=== PATIENT | female | born 2000 | race Caucasian/White ===

== ENCOUNTER → 2019-04-02 13:40 | Emergency (ER) | payer BC ==
[~2019-04-02 13:40] MED LIST: Metoclopramide IV* 5 MG/ML 2 ML VIAL IV ONE; NS 0.9% 1000 ML** 1,000 ML IV ONE
[2019-04-02 14:49] LABS: ABS Eosinophils 0.1 10^3/ul (0-0.6); ABS Lymphocytes 2.5 10^3/ul (1.0-4.8); ABS Monocytes 0.6 10^3/ul (0-0.8); ABS Neutrophils 8.4 10^3/ul (1.5-7.7); Eosinophil % 0.5 %; Hematocrit 30 % (35-47); Hemoglobin 10.4 g/dL (12.0-16.0); Lymphocyte % 21.3 %; Mean Corpuscular HGB Conc 34 g/dL (31-36); Mean Corpuscular Hemoglobin 29 pg (27-31); Mean Corpuscular Volume 85 fL (80-97); Platelet Count 272 10^3/uL (150-450); Red Blood Count 3.59 10^6 /uL (3.70-4.87); Red Cell Distribution Width 13 % (10.5-15); White Blood Count 11.5 10^3/uL (3.5-10.8)
[2019-04-02 15:07] LABS: Albumin 4.1 g/dL (3.2-5.2); Albumin/Globulin Ratio 1.6 (1-3); BUN/Creatinine Ratio 9.1 (8-20); C Reactive Protein 1.28 mg/L (<8.01); Calcium 9.5 mg/dL (8.6-10.3); EGFR African American 170.5 (>60); EGFR Non-African American 140.9 (>60); Globulin 2.6 g/dL (2-4); Potassium 3.3 mmol/L (3.5-5.0); Total Bilirubin 0.4 mg/dL (0.2-1.0); Total Protein 6.7 g/dL (6.4-8.9)
[2019-04-02 15:35] LABS: Urine Appearance Cloudy; Urine Bacteria 1+ (Absent); Urine Bilirubin Negative (Negative); Urine Blood 3+ (Negative); Urine Color Yellow; Urine Glucose Negative (Negative); Urine Ketones Negative (Negative); Urine Nitrite Negative (Negative); Urine Protein Negative (Negative); Urine Red Blood Cell 3+(>10/hpf) (Absent); Urine Specific Gravity 1.011 (1.010-1.030); Urine Squamous Epithelial Cell Present (Absent); Urine Urobilinogen Negative (Negative); Urine White Blood Cell Trace(0-5/hpf) (Absent)
--- NOTE | 2019-04-02 17:25 | ED ---
Abdominal Pain/Female - HPI Summary HPI Summary: Patient is a 18yo F who is 14 weeks reporting R sided flank pain. She said this was acute in onset, lasted approximately one hour and dissipated prior to arrival. She denies any urinary symptoms including hematuria. No history of kidney stones. She states she has never had anything like this before. So far normal , with associated nausea and vomiting intermittently. She did have nausea and vomiting today with her right-sided flank pain. The right-sided flank pain did radiate around to the RLQ briefly. She denies any fevers, sweats, chills. She denies any other symptoms at this time. She is otherwise healthy, takes no medications. - History of Current Complaint Chief Complaint: EDFlankIndrain Stated Complaint: FLANK PAIN, 14 WKS PER PT Time Seen by Provider: 04/02/19 14:40 Hx Obtained From: Patient ?: No Onset/Duration: Sudden Onset Severity Initially: Moderate Severity Currently: Moderate Pain Intensity: 5 Pain Scale Used: 0-10 Numeric Location: Flank Radiates: No Radiates to: RLQ Character: Sharp Aggravating Factor(s): Nothing Alleviating Factor(s): Nothing Associated Signs and Symptoms: Positive: Negative - Risk Factors Ectopic Risk Factor: Negative Ovarian Torsion Risk Factor: Reproductive Age Allergies/Adverse Reactions: Allergies Allergy/AdvReac Type Severity Reaction Status Date / Time No Known Allergies Allergy Verified 04/02/19 13:51 Home Medications: Home Medications Albuterol HFA INHALER* [Ventolin HFA Inhaler*] 1 puff INH Q6H PRN 04/02/19 [ History Confirmed 04/02/19] Citalopram Hydrobromide [Citalopram HBr] 20 mg PO DAILY 04/02/19 [History Confirmed 04/02/19] Doxylamine Succinate/Vit B6 [Bonjesta ER 20-20 mg Tablet] 20 mg PO BID PRN 04/02 [History Confirmed 04/02/19] Vitamin TAB* 1 tab PO DAILY 04/02/19 [History Confirmed 04/02/19] PMH/Surg Hx/FS Hx/Imm Hx Previously Healthy: Yes Infectious Disease History: No Infectious Disease History: Denies: Traveled Outside the [place] in Last 30 Days - Social History Occupation: Unemployed Lives: With Family Alcohol Use: None Hx Substance Use: No Substance Use Type: Reports: None Smoking Status (MU): Former Smoker Review of Systems Negative: Fever, Chills, Fatigue, Skin Diaphoresis Negative: Palpitations, Chest Pain Negative: Shortness Of Breath, Cough Positive: Vomiting, Nausea. Negative: Diarrhea Positive: see HPI, flank pain Negative: Rash, Bruising Neurological: Negative All Other Systems Reviewed And Are Negative: Yes Physical Exam Triage Information Reviewed: Yes Vital Signs On Initial Exam: Initial Vitals Temp Pulse Resp BP Pulse Ox 99 F 83 16 104/68 98 04/02/19 13:49 04/02/19 13:49 04/02/19 13:49 04/02/19 13:49 04/02/19 13:49 Vital Signs Reviewed: Yes Appearance: Positive: Well-Appearing, Well-Nourished Skin: Positive: Warm, Skin Color Reflects Adequate Perfusion Head/Face: Positive: Normal Head/Face Inspection Eyes: Positive: EOMI, MARYCRUZ, Conjunctiva Clear Neck: Positive: Supple, No Lymphadenopathy Respiratory/Lung Sounds: Positive: Clear to Auscultation, Breath Sounds Present Cardiovascular: Positive: RRR, Pulses are Symmetrical in both Upper and Lower Extremities Abdomen Description: Positive: Soft. Negative: Nontender, No Organomegaly, CVA Tenderness (R), CVA Tenderness (L) Musculoskeletal: Positive: Normal, Strength/ROM Intact Neurological: Positive: Speech Normal Psychiatric: Positive: Normal, Affect/Mood Appropriate AVPU Assessment: Alert Diagnostics - Vital Signs Vital Signs Temp Pulse Resp BP Pulse Ox 04/02/19 16:00 74 100 04/02/19 15:22 75 100 04/02/19 14:41 77 112/64 100 04/02/19 13:49 99 F 83 16 104/68 98 - Laboratory Lab Results: Lab Results 04/02/19 04/02/19 04/02/19 Range/Units 13:53 14:40 14:40 WBC 11.5 H (3.5-10.8) 10^3/uL RBC 3.59 L (3.70-4.87) 10^6 /uL Hgb 10.4 L (12.0-16.0) g/dL Hct 30 L (35-47) % MCV 85 (80-97) fL MCH 29 (27-31) pg MCHC 34 (31-36) g/dL RDW 13 (10.5-15) % Plt Count 272 (150-450) 10^3/uL MPV 8.0 (7.4-10.4) fL Neut % (Auto) 72.7 % Lymph % (Auto) 21.3 % Pierce % (Auto) 5.3 % Eos % (Auto) 0.5 % Baso % (Auto) 0.2 % Absolute Neuts (auto) 8.4 H (1.5-7.7) 10^3/ul Absolute Lymphs (auto) 2.5 (1.0-4.8) 10^3/ul Absolute Monos (auto) 0.6 (0-0.8) 10^3/ul Absolute Eos (auto) 0.1 (0-0.6) 10^3/ul Absolute Basos (auto) 0.0 (0-0.2) 10^3/ul Absolute Nucleated RBC 0.0 10^3/ul Nucleated RBC % 0.0 Sodium 134 L (135-145) mmol/L Potassium 3.3 L (3.5-5.0) mmol/L Chloride 106 (101-111) mmol/L Carbon Dioxide 21 L (22-32) mmol/L Anion Gap 7 (2-11) mmol/L BUN 5 L (6-24) mg/dL Creatinine 0.55 (0.51-0.95) mg/dL Est GFR ( Amer) 170.5 (>60) Est GFR (Non-Af Amer) 140.9 (>60) BUN/Creatinine Ratio 9.1 (8-20) Glucose 98 (70-100) mg/dL Lactic Acid (0.5-2.0) mmol/L Calcium 9.5 (8.6-10.3) mg/dL Total Bilirubin 0.40 (0.2-1.0) mg/dL AST 13 (13-39) U/L ALT 8 (7-52) U/L Alkaline Phosphatase 35 (34-104) U/L C-Reactive Protein 1.28 (<8.01) mg/L Total Protein 6.7 (6.4-8.9) g/dL Albumin 4.1 (3.2-5.2) g/dL Globulin 2.6 (2-4) g/dL Albumin/Globulin Ratio 1.6 (1-3) Urine Color Yellow Urine Appearance Cloudy Urine pH 6.0 (5-9) Ur Specific [place] 1.011 (1.010-1.030) Urine Protein Negative (Negative) Urine Ketones Negative (Negative) Urine Blood 3+ A (Negative) Urine Nitrate Negative (Negative) Urine Bilirubin Negative (Negative) Urine Urobilinogen Negative (Negative) Ur Leukocyte Esterase Negative (Negative) Urine WBC (Auto) Trace(0-5/hpf) (Absent) Urine RBC (Auto) 3+(>10/hpf) A (Absent) Ur Squamous Epith Cells Present A (Absent) Urine Bacteria 1+ A (Absent) Urine Glucose Negative (Negative) 04/02/19 Range/Units 14:40 WBC (3.5-10.8) 10^3/uL RBC (3.70-4.87) 10^6 /uL Hgb (12.0-16.0) g/dL Hct (35-47) % MCV (80-97) fL MCH (27-31) pg MCHC (31-36) g/dL RDW (10.5-15) % Plt Count (150-450) 10^3/uL MPV (7.4-10.4) fL Neut % (Auto) % Lymph % (Auto) % Pierce % (Auto) % Eos % (Auto) % Baso % (Auto) % Absolute Neuts (auto) (1.5-7.7) 10^3/ul Absolute Lymphs (auto) (1.0-4.8) 10^3/ul Absolute Monos (auto) (0-0.8) 10^3/ul Absolute Eos (auto) (0-0.6) 10^3/ul Absolute Basos (auto) (0-0.2) 10^3/ul Absolute Nucleated RBC 10^3/ul Nucleated RBC % Sodium (135-145) mmol/L Potassium (3.5-5.0) mmol/L Chloride (101-111) mmol/L Carbon Dioxide (22-32) mmol/L Anion Gap (2-11) mmol/L BUN (6-24) mg/dL Creatinine (0.51-0.95) mg/dL Est GFR ( Amer) (>60) Est GFR (Non-Af Amer) (>60) BUN/Creatinine Ratio (8-20) Glucose (70-100) mg/dL Lactic Acid 1.2 (0.5-2.0) mmol/L Calcium (8.6-10.3) mg/dL Total Bilirubin (0.2-1.0) mg/dL AST (13-39) U/L ALT (7-52) U/L Alkaline Phosphatase (34-104) U/L C-Reactive Protein (<8.01) mg/L Total Protein (6.4-8.9) g/dL Albumin (3.2-5.2) g/dL Globulin (2-4) g/dL Albumin/Globulin Ratio (1-3) Urine Color Urine Appearance Urine pH (5-9) Ur Specific [place] (1.010-1.030) Urine Protein (Negative) Urine Ketones (Negative) Urine Blood (Negative) Urine Nitrate (Negative) Urine Bilirubin (Negative) Urine Urobilinogen (Negative) Ur Leukocyte Esterase (Negative) Urine WBC (Auto) (Absent) Urine RBC (Auto) (Absent) Ur Squamous Epith Cells (Absent) Urine Bacteria (Absent) Urine Glucose (Negative) Result Diagrams: 04/02/19 14:40 04/02/19 14:40 Lab Statement: Any lab studies that have been ordered have been reviewed, and results considered in the medical decision making process. Abdominal Pain Fem Course/Dx - Course Course Of Treatment: During the course of treatment, the patient is evaluated for right-sided flank pain. Labs obtained, UA obtained and an ultrasound of the kidney obtained. Labs are WNL, UA shows RBCs +3. Otherwise negative for infection. Ultrasound obtained which shows no acute findings. Discussed with the patient these results. This is likely a passed kidney stone. Patient remains asymptomatic and will be discharged home at this time. Discussed strict return precautions for the patient to return if she develops any worsening or changing symptoms. - Diagnoses Differential Diagnosis: Positive: Other - hematuria, kidney stone, muscle strain Provider Diagnoses: Right flank pain Discharge - Sign-Out/Discharge Documenting (check all that apply): Patient Departure Patient Received Moderate/Deep Sedation with Procedure: No - Discharge Plan Condition: Stable Disposition: HOME Patient Education Materials: Kidney Stones (ED) Referrals: Sussy Murphy MD [Primary Care Provider] - Additional Instructions: If you develop worsening symptoms - return to the ED - Billing Disposition and Condition Condition: STABLE Disposition: Home
[2019-04-02 17:53] VITALS: BP 110/53
== END | disposition home or self-care (01) ==
LOC: ED 13:40
DX: O26.891 Other specified pregnancy related conditions, first trimester (principal); Z3A.14 14 weeks gestation of pregnancy; R10.9 Unspecified abdominal pain; Z87.891 Personal history of nicotine dependence
CPT/HCPCS: 36415; 76775; 80053; 81003; 81015; 83605; 85025; 86140; 87086; 96361; 96374; 99282; J2765

== ENCOUNTER 2019-09-28 16:00 | Inpatient (IN) | payer BC ==
--- NOTE | 2019-09-28 17:51 | HP ---
General Information - Reason for Visit Seen in office. BPP6/8 for breathing. Baby growth <10th percentile. Suspect IUGR. - General Information Maternal Age: 18 Grav: 1 Para: 0 SAB: 0 IEA: 0 Estimated Due Date: 09/24/19 Determined By: Early Ultrasound Maternal Blood Type and Rh: O Positive - Results this Serology/RPR Result: Non-Reactive Rubella Result: Immune HBsAg Result: Negative HIV Result: Negative GBS Culture Result: Negative Past Medical History Delivery History: See Records Delivery History Comment: no past pregnancies Pertinent Past Medical History: See Records - Depression/anxiety, migraines Pertinent Past Surgical History: None Pertinent Family History: See Records - Paternal grandmother- in childbirth; Maternal grandfather-COPD - Antepartal Records Antepartal Records: Reviewed, Complicated by: - Anemia, suspected IUGR Review of Systems Constitutional: Comfortable CV Complaint: No Respiratory: Shortness of Breath: No Gastrointestinal: No Nausea/Vomiting, Diarrhea Genitourinary: No Dysuria, No Bleeding, No Leaking Fluid Musculoskeletal: No Complaint, No Epigastric Pain Neurological: No Visual Changes, Headache - WNL per her baseline, manages with Tylenol Movement: Normal Exam Allergies/Adverse Reactions: Allergies Latex, Natural Rubber Allergy (Verified 09/28/19 18:53) Itching BP 126/75 HRR 82 RR 16 Temp 98.4 O2 sat 96% on ra - Measurements Height: 1.57 m Weight: 63.503 kg Body Mass Index (BMI): 25.6 Pre- Weight: 55.792 kg - Exam Breast: Breast Exam Deferred CVA: CVA Tenderness - Left side, pt reports hx kidney stones Extremities: No Edema Heart: Normal Rhythm/Heart Sounds HEENT: No Significant Findings Lungs: Clear Bilaterally Rectal: Rectal Exam Deferred Reflexes: DTR 2+, - - No clonus Thyroid: - - assessed as enlarged at entry to care, TFTs WNL - Abdominal Exam Abdomen Exam: Non-Tender - Ultrasound/Biophysical Profile Ultrasound Status: Not Done Targeted Exam Findings See L&D Outpatient Visit Provider Note for Findings: N/A Estimated Weight: 6lb Cervical Exam: 2cm Effacement: 60% Station: -1 Presenting Part: Vertex Membrane Status: Intact Bleeding/Discharge: None EFM Findings - External Monitor Findings Baseline Heart Rate: 130 External Monitor Findings: Accelerations Present, No Pattern of Variable or Late Decelerations, Variability Moderate Contractions: Irregular, Mild, 45-90 Seconds Contraction Frequency: q3-5 Assessment/Plan - Assessment IUP at 40-4 per US@12-01/28 IOL for suspected IUGR Membranes intact No evidence of acidemia - Obstetrical Risk Factors Obstetrical Risk Factors: IUGR - Plan Plan: Induction, Cervical Ripening, Admit - Anticipate Vaginal Delivery Plan Comment: Discussion of cervical ripening, pt agreeable. Monitor per protocol. Discussed phenergan and nubain for therapeutic rest prn, order placed. - Date/Time of Admission Date of Admission: 09/28/19 Time of Admission: 17:42
[2019-09-28] MEDS ORDERED: Lactated Ringers 1000 ML Bag* 1,000 ML IV ONE (18:17)
[2019-09-28] MEDS ORDERED: Nalbuphine* 10 MG/ML 1 ML VIAL IM PRN (18:17)
[2019-09-28] MEDS ORDERED: Promethazine INJ(RESTRICTED)* 25 MG/ML 1 ML VIAL IM PRN (18:17)
[2019-09-28] MEDS ORDERED: Buffered Lidocaine 1% SYRIN* 1 ML/SYRINGE INTRADERM ONE (18:17)
[2019-09-28] MEDS ORDERED: Acetaminophen TAB* 325 MG PO PRN (18:23)
[2019-09-28] MEDS ORDERED: Dinoprostone* 10 MG VAG.SUPP VAGINAL ONE (18:26)
[2019-09-28] MEDS ORDERED: Lactated Ringers 1000 ML Bag* 1,000 ML IV SCH (19:00)
[2019-09-28 21:38] LABS: Urine Appearance Cloudy; Urine Bacteria 1+ (Absent); Urine Bilirubin Negative (Negative); Urine Blood Negative (Negative); Urine Color Yellow; Urine Glucose Negative (Negative); Urine Ketones Negative (Negative); Urine Nitrite Positive (Negative); Urine Protein 2+(100 mg/dL) (Negative); Urine Red Blood Cell Absent (Absent); Urine Urobilinogen Negative (Negative); Urine White Blood Cell 3+(>20/hpf) (Absent)
[2019-09-28 21:48] LABS: Urine Benzodiazepine Screen None Detected (None Detect); Urine Opiates Screen None Detected (None Detect)
[2019-09-29] MEDS: Promethazine INJ(RESTRICTED)* 25 MG/ML 1 ML VIAL IV PRN ×2 (04:56→10:20)
[2019-09-29] MEDS: Nalbuphine* 10 MG/ML 1 ML VIAL IV PRN ×2 (04:56→10:20)
[2019-09-29 05:12] LABS: Hematocrit 31 % (35-47); Hemoglobin 10.1 g/dL (12.0-16.0); Mean Corpuscular HGB Conc 33 g/dL (31-36); Mean Corpuscular Hemoglobin 24 pg (27-31); Mean Corpuscular Volume 73 fL (80-97); Mean Platelet Volume 7.1 fL (7.4-10.4); Platelet Count 454 10^3/uL (150-450); Red Blood Count 4.22 10^6 /uL (3.70-4.87); Red Cell Distribution Width 18 % (10-15); White Blood Count 17.5 10^3/uL (3.5-10.8)
[2019-09-29] MEDS ORDERED: Citalopram TAB* 20 MG PO SCH (09:00)
--- NOTE | 2019-09-29 09:22 | PN ---
Progress Note - Progress Note Date of Service: 09/29/19 Note: S: Feeling more uncomfortable. Having a hard time breathing during contractions. Family at bedside for support. O: B/P: 127/83, P: 66, R: 20, T: 97.1 FHR: baseline 125, moderate variability, + accelerations, no decelerations UCs: q 2-5 min, mild-moderate to palpation VE: 3.5/80/-2, posterior A: IUP at 40 5/7 weeks Category I FHR, no evidence of metabolic acidemia P: Cervidil removed Discussed trial of pitocin vs assessing labor pattern Pt desires to get in the tub for 30-40 minutes and then make a plan Reassess around 10 am
--- NOTE | 2019-09-29 10:13 | PN ---
Progress Note - Progress Note Date of Service: 09/29/19 Note: S: Has been in tub, uncomfortable O: UCs still q 3-4 mins A: IUP at 40 5/7 weeks Early labor P: would like to try another dose of nubain/phenergan Reassess contraction pattern in next 1-3 hrs Anticipate SVB
--- NOTE | 2019-09-29 11:29 | PN ---
Progress Note - Progress Note Date of Service: 09/29/19 Note: S: Reports feeling an urge to push. Pt tensing up with UCs, vocalizing O: FHR 130s by IA UCs q 3-4 by palpation, moderate VE: 590/-2, bloody show A: IUP at 40 5/7 weeks Early active labor P: discussed pain management options; received nubain/phenergan 1 hr ago. Can start nitrous in 1 hr declines epidural analgesia at this time Reassess PRN Anticipate SVB
[2019-09-29] MEDS ORDERED: Oxytocin in LR* 20 UNITS/1,000 ML BAG IVPB ONE (13:00)
[2019-09-29] MEDS ORDERED: Oxytocin in LR* 20 UNITS/1,000 ML BAG IVPB SCH (13:05)
[2019-09-29] MEDS ORDERED: Acetaminophen TAB* 325 MG PO PRN (13:31)
[2019-09-29] MEDS ORDERED: Witch Hazel PAD* JAR TOPICAL PRN (13:31)
[2019-09-29] MEDS ORDERED: Glycerin ADULT SUPP PR PRN (13:31)
[2019-09-29] MEDS ORDERED: Misoprostol TAB* 200 MCG ONE (13:47)
[2019-09-29] MEDS ORDERED: Lidocaine 1% INJ* 10 MG/ML 30 ML SDV ONE (13:47)
[2019-09-29] MEDS ORDERED: Lactated Ringers 1000 ML Bag* 1,000 ML IV SCH (14:00)
--- NOTE | 2019-09-29 14:03 | PROCNOTE ---
[facility] OB: Delivery Note - Delivery A Date of : 09/29/19 Time of : 12:56 [place] Sex: Female Weight at : 6 lb 2 oz Score 1 Minute: 8 Score 5 Minutes: 9 Gestational Age in Weeks and Days at Delivery: 40 Weeks and 5 Days Delivery Method: Spontaneous Vaginal Labor: Spontaneous Did Patient attempt ?: N/A, No Previous Amniotic Fluid: Meconium Estimated Blood Loss: 450 Anesthesia/Analgesia: IM/IV - nubain/phenergan x 2 Delivered By: Lyndsey Friedman - Nursery Level of Nursery: Regular/Bedside - Perineum Perineal Injury: Vaginal Laceration Perineal Injury Comment: 2 cm, repaired with 3-0 vicryl rapide Perineal Repair: By Delivering Practioner - Events Delivery Events of Note: Pitocin Only After Delivery, Supplemental O2 to Mother - Additional Delivery Notes Additional Delivery Notes: received cervidil for ripening and progressed to complete and complete. Began pushing at 1214 with good maternal effort. Slow, controlled delivery of head OA to MANUEL at 1256, loose nuchal cord x 1 reduced on perineum. Shoulders followed easily with next push, delivered to maternal abdomen. Female infant dried and stimulated, bulb suctioned for copious secretions. Spontaneous cry, HR > 110, Apgars 8 and 9. Cord was doubly clamped and cut by cooling tower operator once pulsations ceased, about 3 minutes. IV pitocin initiated for active management of third stage. Spontaneous jose antonio placenta soon followed, intact and membranes complete. Fundus firm with massage. Perineum and vagina inspected, 2 cm vaginal laceration noted, repaired under lidocaine infiltration with 3-0 vicryl rapide. Left labial laceration hemostatic, not repaired. Mother and stable at time of note, feeding plan is breast. EBL = 450 cc
[2019-09-29] MEDS: Ibuprofen TAB* 600 MG PO SCH (14:58)
[2019-09-29] MEDS: Docusate CAP* 100 MG PO SCH ×2 (14:58→20:16)
[2019-09-29] MEDS: Dibucaine 1% 28.35 GM TUBE PR PRN (15:15)
[2019-09-29] MEDS ORDERED: Simethicone TAB* 80 MG TAB.CHEW PO SCH (17:30)
[2019-09-30] MEDS: Ibuprofen TAB* 600 MG PO SCH ×5 (02:07→21:54)
[2019-09-30 05:43] LABS: ABS Lymphocytes 3.4 10^3/ul (1.0-4.8); ABS Monocytes 1.2 10^3/ul (0-0.8); ABS Neutrophils 16.8 10^3/ul (1.5-7.7); Eosinophil % 0.2 %; Hematocrit 26 % (35-47); Hemoglobin 8.6 g/dL (12.0-16.0); Lymphocyte % 15.7 %; Mean Corpuscular HGB Conc 33 g/dL (31-36); Mean Corpuscular Hemoglobin 24 pg (27-31); Mean Corpuscular Volume 73 fL (80-97); Mean Platelet Volume 6.8 fL (7.4-10.4); Nucleated Red Blood Cells % 0.1; Platelet Count 367 10^3/uL (150-450); Red Blood Count 3.57 10^6 /uL (3.70-4.87); Red Cell Distribution Width 17 % (10-15); White Blood Count 21.5 10^3/uL (3.5-10.8)
[2019-09-30] MEDS: Ferrous Gluconate TAB* 324 MG TAB PO SCH ×2 (08:41→21:24)
[2019-09-30] MEDS: Docusate CAP* 100 MG PO SCH ×3 (08:41→21:24)
[2019-09-30] MEDS: Dibucaine 1% 28.35 GM TUBE PR PRN (15:21)
[2019-10-01] MEDS: Ibuprofen TAB* 600 MG PO SCH ×3 (04:01→09:11)
[2019-10-01 06:29] LABS: ABS Eosinophils 0.2 10^3/ul (0-0.6); ABS Monocytes 0.8 10^3/ul (0-0.8); ABS Neutrophils 11.1 10^3/ul (1.5-7.7); Eosinophil % 1.6 %; Hematocrit 26 % (35-47); Hemoglobin 8.2 g/dL (12.0-16.0); Lymphocyte % 19.8 %; Mean Corpuscular HGB Conc 32 g/dL (31-36); Mean Corpuscular Hemoglobin 24 pg (27-31); Mean Corpuscular Volume 74 fL (80-97); Mean Platelet Volume 6.4 fL (7.4-10.4); Platelet Count 341 10^3/uL (150-450); Red Blood Count 3.48 10^6 /uL (3.70-4.87); Red Cell Distribution Width 18 % (10-15); White Blood Count 15.2 10^3/uL (3.5-10.8)
[2019-10-01 08:12] VITALS: BP 121/58
[2019-10-01] MEDS: Docusate CAP* 100 MG PO SCH (09:11)
[2019-10-01] MEDS: Ferrous Gluconate TAB* 324 MG TAB PO SCH (09:11)
== END 2019-10-01 12:30 | disposition home or self-care (01) | DRG 560 ==
LOC: MCHOBOUT 16:00 → MCHOB 17:42
PROVIDERS: ADMIT Midwife; ATTEND Midwife
PROC: 10E0XZZ Delivery of Products of Conception, External Approach (ICD-10-PCS; principal; 2019-09-29)
PROC: 3E0P7VZ Introduction of Hormone into Female Reproductive, Via Natural or Artificial Opening (ICD-10-PCS; 2019-09-29)
PROC: 4A1HXCZ Monitoring of Products of Conception, Cardiac Rate, External Approach (ICD-10-PCS; 2019-09-29)
PROC: 0UQGXZZ Repair Vagina, External Approach (ICD-10-PCS; 2019-09-29)
DX: O48.0 Post-term pregnancy (principal); Z37.0 Single live birth; O99.344 Other mental disorders complicating childbirth; F32.9 Major depressive disorder, single episode, unspecified; F41.9 Anxiety disorder, unspecified; O36.5930 Maternal care for other known or suspected poor fetal growth, third trimester, not applicable or unspecified; O69.81X0 Labor and delivery complicated by cord around neck, without compression, not applicable or unspecified; O77.0 Labor and delivery complicated by meconium in amniotic fluid; O99.03 Anemia complicating the puerperium; O70.0 First degree perineal laceration during delivery; Z3A.40 40 weeks gestation of pregnancy; Z91.040 Latex allergy status; Z87.442 Personal history of urinary calculi
CPT/HCPCS: 36415; 80307; 81003; 81015; 85025; 85027; 86850; 86900; 86901; 87077; 87086; 87186; A9270-GY; J2300; J2550